=== PATIENT | female | born 1975 | race Caucasian/White ===

== ENCOUNTER 2017-03-06 16:41 | Emergency (ER) | payer BC, OTHER ==
[~2017-03-06] VITALS: Ht 162.6 cm; Wt 53.3 kg
[~2017-03-06 16:41] MED LIST: FRC PO; TOPI25TA99 PO
[2017-03-06 16:43] VITALS: TEMP 36.5; Ht 162.6 cm; Wt 53.3 kg
[2017-03-06] MEDS ORDERED: MULT-603 PO (17:32)
[2017-03-06] MEDS ORDERED: FERR1TAB23 PO (17:32)
[2017-03-06 18:14] LABS: BASO % 0.2 %; BASO ABS # 0.01 K/uL (0-0.2); COMPLETE YES; EOS % 0.7 %; HEMATOCRIT 40.2 % (37-47); IG% 0.2 %; LYMPH % 31.2 %; LYMPH ABS # 1.85 K/uL (1.2-3.4); MEAN CELL VOLUME 93.7 fL (80-100); MEAN CORPUSCULAR HGB CONC 33.1 g/dl (32-36); MEAN PLATELET VOLUME 9.7 fL (7.4-10.4); MONO % 7.3 %; NEUT % 60.4 %; PLATELET COUNT 207 K/uL (130-400); RED BLOOD COUNT 4.29 M/uL (4.2-5.4); WHITE BLOOD COUNT 5.93 K/uL (4.8-10.8)
[2017-03-06 18:32] LABS: BUN/CREATININE RATIO 19.6 (10-20); CALCIUM 9.2 mg/dl (8.5-10.1); CREATININE 0.7 mg/dl (0.60-1.20); POTASSIUM 3.9 mmol/L (3.5-5.1)
--- NOTE | 2017-03-06 18:35 | DIAGNOSTIC IMAGING REPORT ---
[facility] CLINICAL HISTORY: Kidney stones COMPARISON STUDY: CT scan dated 10/15/2010 FINDINGS: There is scattered stool within the colon. The renal shadows are largely obscured by overlying bowel gas and fecal material. There are a few punctate opacities project over each renal shadow. Small calculi are likely. An IUD is visualized within the pelvis IMPRESSION: 1. No evidence of pathologic bowel dilatation 2. Probable tiny bilateral renal calculi Electronically signed by: Sam Soto M.D. 03/06/2017 6:33 PM Dictated Date/Time: 03/06/2017 6:31 PM
[2017-03-06 18:50] LABS: MANUAL MICROSCOPIC REQUIRED? YES; REVIEW REQ? NO
[2017-03-06 18:52] LABS: SULFASALICYLIC ACID NEG (NEG); URINE APPEARANCE TURBID (CLEAR)
[2017-03-06 18:53] LABS: URINE SPECIFIC GRAVITY 1.024 (1.000-1.030)
[2017-03-06 18:53] LABS: ALB/GLOB RATIO 1.2 (0.9-2)
--- NOTE | 2017-03-06 18:53 | DIAGNOSTIC IMAGING REPORT ---
ABDOMEN COMPLETE (US) CLINICAL HISTORY: Abdominal and back pain. COMPARISON STUDY: CT scan dated 10/15/2010 FINDINGS: The pancreas appears sonographically normal. The liver appears sonographically normal. The gallbladder appears sonographically normal. There is no ductal dilatation. The common bile duct measures 3 mm. The right kidney measures 10.7 cm in length. The left kidney measures 10.4 cm in length. No renal masses are visualized. There is no hydronephrosis. The spleen appears sonographically normal. There is no evidence of aortic dilatation. IMPRESSION: Normal study Electronically signed by: Sam Soto M.D. 03/06/2017 6:52 PM Dictated Date/Time: 03/06/2017 6:50 PM
[2017-03-06 18:54] LABS: URINE COLOR ORANGE
[2017-03-06 19:07] LABS: URINE BACTERIA 1+ (NEG); URINE RBC >30 /hpf (0-4); URINE WBC >30 /hpf (0-5)
--- NOTE | 2017-03-06 19:21 | EMERGENCY ROOM VISIT NOTE ---
ED Visit Note First contact with patient: 17:02 Resident Physician Supervision Note: I was present with Dr. Crespo during the history and exam. I discussed the case with the resident and agree with the findings and plan as documented in the note. Documented By: Francis Alicea
[2017-03-06] MEDS ORDERED: CIPR250T5 PO (19:47)
[2017-03-06 20:23] VITALS: BP 105/71; PULSE 78; O2SAT 97
--- NOTE | 2017-03-06 20:45 | EMERGENCY ROOM VISIT NOTE ---
History First contact with patient: 17:02 Chief Complaint: URINARY SYMPTOMS Stated Complaint: URINARY SYMPTOMS Nursing Triage Summary: URINARY URGENCY, FREQUNCY, BURNING, IRRITATION, BACK PAIN, AND FEVERS AT HOME. History of Present Illness The patient is a 41 year old female who presents to the Emergency Room with complaints of urinary symptoms since Sunday. On Sunday though she might have a UTI, was taking Phenazopyridine constantly. She was sitting on the toilet all Sunday night with dysuria with only a few drops every few minutes. Went to Urgent Care yesterday, was diagnosed with a UTI , and sent home with Macrobid. She had taken 2 doses of Macrobid when they had called her and told her that her urine culture was negative. Has still been taking the Phenazopyridine since due to the pain. Complains of Burning, Frequency, Back Pain, more on the left side, has had a history of kidney stones, unable to tell if she is fully emptying her bladder, nausea, and has felt more feverish (temp 99, high for her), fatigue, and chills. Unsure whether she has had any blood in her urine due to the medication. She says it looks a little more reddish than orange. She has a history of Kidney stones, previously seen in the ED at [facility] in 2009. She was given pain medication at the time and the stones passed spontaneously. She also has an extensive history of UTIs, one as recent as 6 weeks ago. She completed a course of antibiotics for that UTI which grew E Coli. Her symptoms currently feel like an extreme version of her other UTI, with a little more abdominal and feeling more feverish. Review of Systems See HPI for pertinent positives and negatives. A total of ten systems were reviewed and were otherwise negative. Past Medical/Surgical History Migraines, Recurrent UTIs, Kidney Stones Family History Mom: Diverticulitis Father: Diabetes Social History Smoking Status: Former Smoker Current/Historical Medications Scheduled Ciprofloxacin (Ciprofloxacin HCl), 1 TAB PO BID Ferrous Sulfate (Iron), 1 TAB PO DAILY Multiple Vitamins W/ Minerals (Womens Multi Vitamin & Mi), 1 TAB PO DAILY Allergies Coded Allergies: No Known Allergies (Unverified Allergy, Unknown, UNKNOWN, 08/16/09) Physical Exam Vital Signs Date Time Temp Pulse Resp B/P Pulse Ox O2 Delivery O2 Flow Rate FiO2 03/06/17 20:23 78 18 105/71 97 03/06/17 18:56 81 18 113/75 98 Room Air 03/06/17 18:02 82 18 120/82 100 Room Air 03/06/17 16:43 36.5 89 18 126/94 97 Room Air Physical Exam GENERAL: Awake, alert, well-appearing, in no acute distress HENT: Normocephalic, atraumatic. Oropharynx unremarkable. EYES: Normal conjunctiva. Sclera non-icteric. NECK: Supple. Trachea midline RESPIRATORY: Clear to auscultation. CARDIAC: Regular rate, normal rhythm. Extremities warm and well perfused. Pulses equal. ABDOMEN: Soft, non-distended. No rebound or guarding. No masses. Suprapubic tenderness RECTAL: Deferred. MUSCULOSKELETAL: Chest examination reveals no tenderness. The back is symmetrical on inspection without obvious abnormality. There is no CVA tenderness to palpation. She appreciated tenderness at the midline at the lower lumbar spine. LOWER EXTREMITIES: Calves are equal size bilaterally and non-tender. No edema. No discoloration. NEURO: Normal sensorium. No sensory or motor deficits noted. SKIN: No rash or jaundice noted. Medical Decision & Procedures Laboratory Results 03/06/17 18:05 Red Blood Count 4.29, Mean Corpuscular Volume 93.7, Mean Corpuscular Hemoglobin 31.0, Mean Corpuscular Hemoglobin Concent 33.1, Mean Platelet Volume 9.7, Neutrophils (%) (Auto) 60.4, Lymphocytes (%) (Auto) 31.2, Monocytes (%) (Auto) 7.3, Eosinophils (%) (Auto) 0.7, Basophils (%) (Auto) 0.2, Neutrophils # (Auto) 3.59, Lymphocytes # (Auto) 1.85, Monocytes # (Auto) 0.43, Eosinophils # (Auto) 0.04, Basophils # (Auto) 0.01 03/06/17 18:05 Test 03/06/17 17:08 03/06/17 18:05 Urine Color ORANGE Urine Appearance TURBID (CLEAR) Urine pH (4.5-7.5) Urine Specific Wilburn 1.024 (1.000-1.030) Urine Protein NEG (NEG) Urine Glucose (UA) (NEG) Urine Ketones (NEG) Urine Occult Blood (NEG) Urine Nitrite (NEG) Urine Bilirubin (NEG) Urine Urobilinogen (NEG) Urine Leukocyte Esterase (NEG) Urine RBC >30 /hpf (0-4) Urine WBC >30 /hpf (0-5) Urine Epithelial Cells 0-5 /lpf (0-5) Urine Bacteria 1+ (NEG) White Blood Count 5.93 K/uL (4.8-10.8) Red Blood Count 4.29 M/uL (4.2-5.4) Hemoglobin 13.3 g/dL (12.0-16.0) Hematocrit 40.2 % (37-47) Mean Corpuscular Volume 93.7 fL (80-100) Mean Corpuscular Hemoglobin 31.0 pg (25-34) Mean Corpuscular Hemoglobin Concent 33.1 g/dl (32-36) Platelet Count 207 K/uL (130-400) Mean Platelet Volume 9.7 fL (7.4-10.4) Neutrophils (%) (Auto) 60.4 % Lymphocytes (%) (Auto) 31.2 % Monocytes (%) (Auto) 7.3 % Eosinophils (%) (Auto) 0.7 % Basophils (%) (Auto) 0.2 % Neutrophils # (Auto) 3.59 K/uL (1.4-6.5) Lymphocytes # (Auto) 1.85 K/uL (1.2-3.4) Monocytes # (Auto) 0.43 K/uL (0.11-0.59) Eosinophils # (Auto) 0.04 K/uL (0-0.5) Basophils # (Auto) 0.01 K/uL (0-0.2) RDW Standard Deviation 43.4 fL (36.4-46.3) RDW Coefficient of Variation 12.7 % (11.5-14.5) Immature Granulocyte % (Auto) 0.2 % Immature Granulocyte # (Auto) 0.01 K/uL (0.00-0.02) Anion Gap 5.0 mmol/L (3-11) Est Creatinine Clear Calc Drug Dose 89.0 ml/min Estimated GFR () 124.7 Estimated GFR (Non- 107.6 BUN/Creatinine Ratio 19.6 (10-20) Calcium Level 9.2 mg/dl (8.5-10.1) Total Bilirubin 0.4 mg/dl (0.2-1) Aspartate Amino Transf (AST/SGOT) 22 U/L (15-37) Alanine Aminotransferase (ALT/SGPT) 33 U/L (12-78) Alkaline Phosphatase 78 U/L (45-117) Total Protein 8.1 gm/dl (6.4-8.2) Albumin 4.4 gm/dl (3.4-5.0) Globulin 3.7 gm/dl (2.5-4.0) Albumin/Globulin Ratio 1.2 (0.9-2) Lipase 189 U/L (73-393) Medical Decision Etiologies such as renal colic, appendicitis, diverticulitis, mesenteric ischemia, aortic pathology, infections, inflammatory bowel disease, PUD, biliary pathology, UTI, as well as others were entertained. Impression Primary Impression: Urinary tract infection Based on overwhelming WBC and RBC count in urine patient appears to have an acute UTI - Resume antibiotic therapy - Continue oral hydration therapy Departure Information Dispostion Home / Self-Care Condition GOOD Prescriptions Ciprofloxacin (Ciprofloxacin HCl) 250 Mg Tab 1 TAB PO BID for 3 Days, #6 TAB Prov: Rodrigo Crespo MD 03/06/17 Referrals No Doctor, Assigned (PCP) Patient Instructions [facility] Problem Qualifiers Primary Impression: Urinary tract infection Urinary tract infection type: site unspecified Hematuria presence: without hematuria Qualified Codes: N39.0 - Urinary tract infection, site not specified
== END 2017-03-06 20:24 | disposition home or self-care (01) ==
LOC: C.EDB 16:43 → C.EDC 20:24
DX: N39.0 Urinary tract infection, site not specified (principal); G43.909 Migraine, unspecified, not intractable, without status migrainosus; Z87.442 Personal history of urinary calculi; Z87.440 Personal history of urinary (tract) infections; Z83.79 Family history of other diseases of the digestive system; Z83.3 Family history of diabetes mellitus; Z87.891 Personal history of nicotine dependence

== ENCOUNTER → 2017-04-10 | Outpatient (CLI) | payer BC ==
[~2017-04-10] MED LIST changes: +CIPR250T5 PO; +FERR1TAB23 PO; -FRC PO; +MULT-603 PO; -TOPI25TA99 PO
[2017-04-10 18:13] LABS: MANUAL MICROSCOPIC REQUIRED? YES; REVIEW REQ? NO; SULFASALICYLIC ACID NEG (NEG); URINE APPEARANCE SLIGHTLY CLOUDY (CLEAR); URINE COLOR ORANGE; URINE SPECIFIC GRAVITY 1.021 (1.000-1.030)
[2017-04-10 18:16] LABS: URINE BACTERIA 4+ (NEG); URINE RBC 0-4 /hpf (0-4); URINE WBC >30 /hpf (0-5)
== END | disposition home or self-care (01) ==
LOC: C.LABBFT 11:51
PROVIDERS: ATTEND Internal Medicine
DX: N39.0 Urinary tract infection, site not specified (principal)

== ENCOUNTER → 2017-07-26 | Outpatient (CLI) | payer BC ==
[~2017-07-26] MED LIST changes: -CIPR250T5 PO; +CPR250 PO
== END | disposition home or self-care (01) ==
LOC: C.PAPS 16:41
PROVIDERS: ATTEND Obstetrics & Gynecology
DX: Z01.419 Encounter for gynecological examination (general) (routine) without abnormal findings (principal)